=== PATIENT | female | born 1995 | race Caucasian/White ===

== ENCOUNTER 2016-10-27 12:50 | Emergency (ER) | payer SELFPAY ==
[2016-10-27 12:57] VITALS: BP 143/89
--- NOTE | 2016-10-27 14:17 | UC ---
Dental HPI - HPI Summary HPI Summary: 4 days of right lower dental pain and swelling---has not bad a dentist appointment, does not have dental insurance - History of Current Complaint Chief Complaint: UCDentalProblem Stated Complaint: DENTAL PAIN Time Seen by Provider: 10/27/16 14:10 Hx Obtained From: Patient Hx Last Menstrual Period: 06/2016 ?: No Onset/Duration: Gradual Onset, Lasting Days, Still Present, Worse Since - past 4 days Severity: Severe Pain Intensity: 8 Pain Scale Used: 0-10 Numeric Aggravating: Chewing Alleviating: Nothing Related History: Previous Dental Care on Same Tooth, Swelling - Allergies/Home Medications Allergies/Adverse Reactions: Allergies Allergy/AdvReac Type Severity Reaction Status Date / Time Bee Venom Allergy Severe Anaphylatic Verified 11/19/15 18:42 Shock Clarithromycin [From Biaxin] Allergy Severe Hives Verified 11/19/15 18:42 Eggs or Egg-derived Products Allergy Unknown Unknown Verified 11/19/15 18:42 Reaction Details Clindamycin Allergy Unknown Verified 11/19/15 18:42 Reaction Details Penicillins Allergy Unknown Verified 11/19/15 18:42 Reaction Details PEANUTS Allergy Severe Anaphylatic Uncoded 11/19/15 18:42 Shock PMH/Surg Hx/FS Hx/Imm Hx Previously Healthy: No Other History Of: Negative For: Anticoagulant Therapy - Surgical History Surgical History: None - Family History Known Family History: Positive: None, Diabetes - mother and grandparents - Social History Occupation: Unemployed Lives: With Family Alcohol Use: None Substance Use Type: None Smoking Status (MU): Heavy Every Day Tobacco Smoker Household Exposure Type: Cigarettes Cessation Counseling: Patient Advised to Stop Review of Systems Constitutional: Negative Skin: Negative Eyes: Negative ENT: Dental Pain - right lower dental pain last and third from the last molar Respiratory: Negative Cardiovascular: Negative Gastrointestinal: Negative Genitourinary: Negative Motor: Negative Neurovascular: Negative Musculoskeletal: Negative Neurological: Negative Psychological: Negative All Other Systems Reviewed And Are Negative: Yes Physical Exam Triage Information Reviewed: Yes Appearance: Ill-Appearing, Pain Distress, Obese Vital Signs: Initial Vital Signs Temp 96.3 F 10/27/16 12:54 Pulse 103 10/27/16 12:54 Resp 20 10/27/16 12:54 BP 143/89 10/27/16 12:54 Pulse Ox 100 10/27/16 12:54 Vital Signs Reviewed: Yes Eye Exam: Normal Eyes: Positive: Conjunctiva Clear ENT Exam: Normal ENT: Positive: Normal ENT inspection, Hearing grossly normal, Pharynx normal, TMs normal. Negative: Nasal congestion, Nasal drainage, Tonsillar swelling, Tonsillar exudate, Trismus, Muffled/hoarse voice Dental Exam: Other Dental: Positive: Percussion Tenderness @ - 30 and 32, Gross Decay/Caries @ - 30 and 32, Abscess @ - right lower jaw Neck exam: Normal Neck: Positive: Supple, Nontender, No Lymphadenopathy Respiratory Exam: Normal Respiratory: Positive: Chest non-tender, Lungs clear, Normal breath sounds, No respiratory distress, No accessory muscle use Cardiovascular Exam: Normal Cardiovascular: Positive: RRR, No Murmur, Pulses Normal, Brisk Capillary Refill Musculoskeletal Exam: Normal Musculoskeletal: Positive: Strength Intact, ROM Intact, No Edema Neurological Exam: Normal Neurological: Positive: Alert, Muscle Tone Normal Psychological Exam: Normal Skin Exam: Normal Dental Complaint Course/Dx - Course Course Of Treatment: Zithromax, ibuprofen, peridex, [facility] for help with insurance and dental voucher and dental referrals - Differential Dx/Diagnosis Differential Diagnosis/Dx: Dental Abscess, Dental Caries, Odontogenic Pain, Peridontic Disease Provider Diagnoses: dental abscess with dental caries, nicotine dependent Discharge - Discharge Plan Condition: Stable Disposition: HOME Prescriptions: Azithromycin TAB* [Zithromax TAB (Z-DAVINA) 250 mg #6 tabs] 2 tab PO .TODAY, THEN 1 DAILY #1 davina Chlorhexidine MW 0.12% 473ML* [Peridex Mouth Wash 0.12%*] 10 ml MT BID #473 ml Ibuprofen TAB* [Motrin TAB* 600 MG] 600 mg PO Q6H PRN #56 tab PRN Reason: Pain Patient Education Materials: Dental Abscess (ED), DASH Eating Plan (ED), Hypertension (ED) Referrals: [facility] [Provider Group] - 10/29/16 [facility] [place] [facility] [place] [place]] - 2 Weeks
== END 2016-10-27 14:36 | disposition home or self-care (01) ==
LOC: UCEAST 12:50
DX: K04.7 Periapical abscess without sinus (principal); K02.9 Dental caries, unspecified; F17.210 Nicotine dependence, cigarettes, uncomplicated; Z88.0 Allergy status to penicillin
CPT/HCPCS: 99212; G0463

== ENCOUNTER 2017-01-29 10:41 | Emergency (ER) | payer SELFPAY ==
[2017-01-29 10:49] VITALS: BP 124/85
--- NOTE | 2017-01-29 11:48 | RAD ---
HISTORY: Cough, fever, shortness of breath COMPARISONS: July 27, 2012 VIEWS: 4: Frontal dual-energy and lateral views of the chest. FINDINGS: CARDIOMEDIASTINAL SILHOUETTE: The cardiomediastinal silhouette is normal. ARA: The ara are normal. PLEURA: The costophrenic angles are sharp. No pleural abnormalities are noted. LUNG PARENCHYMA: The lungs are clear. ABDOMEN: The upper abdomen is clear. There is no subphrenic gas. BONES AND SOFT TISSUES: No bone or soft tissue abnormalities are noted. OTHER: None. IMPRESSION: NO ACTIVE CARDIOPULMONARY DISEASE.
--- NOTE | 2017-01-30 16:34 | UC ---
Progress - Progress Note Progress Note: notify pt that her preliminary UC is (+) for e.coli sensitivities pending will e Rx Keflex 500mg BID (#10)
--- NOTE | 2017-02-05 08:41 | UC ---
Juan Villaseñor Nilda, scribed for Julee Bowens MD on 01/29/17 at 1117 . Respiratory Complaint HPI - HPI Summary HPI Summary: This patient is a 21 year old F presenting [place] [facility] accompanied by mother with a chief complaint of constant moderate productive cough (bright green) that began 1 week ago. She reports rhinorrhea, nasal congestion, and vomiting. Symptoms are alleviated by nothing. Patient denies using inhalers. Per mother, patient has had recent sick contacts with siblings. PMHx includes childhood asthma and bronchitis. - History of Current Complaint Chief Complaint: UCRespiratory Stated Complaint: VOMITING FEVER CONGESTION Time Seen by Provider: 01/29/17 11:01 Hx Obtained From: Patient, Family/Parts Fabricator - mother Hx Last Menstrual Period: irregular did not have in dec Onset/Duration: Gradual Onset, Lasting Weeks - 1 week, Still Present Timing: Constant Severity Currently: Moderate Character: Cough: Productive, Sputum Description: - bright green Alleviating Factors: Nothing Associated Signs And Symptoms: Positive: Nasal Congestion - Allergies/Home Medications Allergies/Adverse Reactions: Allergies Allergy/AdvReac Type Severity Reaction Status Date / Time Bee Venom Allergy Severe Anaphylatic Verified 01/29/17 10:50 Shock Clarithromycin [From Biaxin] Allergy Severe Hives Verified 01/29/17 10:50 Eggs or Egg-derived Products Allergy Unknown Unknown Verified 01/29/17 10:50 Reaction Details Clindamycin Allergy Unknown Verified 01/29/17 10:50 Reaction Details Penicillins Allergy Unknown Verified 01/29/17 10:50 Reaction Details PEANUTS Allergy Severe Anaphylatic Uncoded 01/29/17 10:50 Shock PMH/Surg Hx/FS Hx/Imm Hx Previously Healthy: No - ricket dz, asthma Respiratory History: Asthma Other History Of: Negative For: Anticoagulant Therapy - Surgical History Surgical History: None - Family History Known Family History: Positive: Cardiac Disease - CHF, Diabetes - mother and grandparents, Respiratory Disease - COPD - Social History Alcohol Use: None Substance Use Type: None Smoking Status (MU): Heavy Every Day Tobacco Smoker Amount Used/How Often: 5 per day Household Exposure Type: Cigarettes Review of Systems Constitutional: Fatigue Skin: Negative Eyes: Negative ENT: Sore Throat - with cough, Nasal Discharge - bright green, Sinus Congestion Respiratory: Cough - productive, bright green no hemoptysis Cardiovascular: Chest Pain - with cough Gastrointestinal: Vomiting Genitourinary: Dysuria Motor: Negative Neurovascular: Negative Musculoskeletal: Negative Neurological: Negative Psychological: Negative Is Patient Immunocompromised?: No All Other Systems Reviewed And Are Negative: Yes Physical Exam Triage Information Reviewed: Yes Appearance: Well-Nourished Vital Signs: Initial Vital Signs Temp 98.3 F 01/29/17 10:45 Pulse 94 01/29/17 10:45 Resp 18 01/29/17 10:45 BP 124/85 01/29/17 10:45 Pulse Ox 98 01/29/17 10:45 Vital Signs Reviewed: Yes Eye Exam: Normal ENT: Positive: Pharyngeal erythema - post pharyngeal erythema, no sores, uvula mild edematous but airway patent, TMs normal - morris au Neck: Positive: Supple, Nontender, No Lymphadenopathy Respiratory: Positive: Chest non-tender, Rhonchi - bilat base, Wheezing - bilat Cardiovascular Exam: Normal - Heart rate regular, good general skin color, good capillary refill Cardiovascular: Positive: RRR, No Murmur, Pulses Normal, Brisk Capillary Refill Abdominal Exam: Normal Abdomen Description: Positive: Nontender, No Organomegaly, Soft Bowel Sounds: Positive: Present Musculoskeletal Exam: Other - s/p ricket dz. Moves all 4 ext's. Musculoskeletal: Positive: Strength Intact Neurological Exam: Normal - nonfocal, grossly intact Psychological Exam: Normal - conversing easily and appropriately Skin Exam: Normal - no visible or reported rash nondiaphoretic Diagnostic Evaluation - Laboratory O2 Sat by Pulse Oximetry: 98 - Radiology Radiology Interpretation Completed By: Radiologist - CXR reveals no active cardiopulmonary disease. physician reviewed this report and agrees. Re-Evaluation - Re-Evaluation First Eval Re-Evaluation Time: 11:52 Comment: Physician reviewed imaging results with patient. Respiratory Course/Dx - Course Course Of Treatment: No new problems in CCC. Considered DuoNeb treatment, but pt declines - will use albuterol neb at home (has access to home nebulizer). Urine dip noted, cx sent (pt agreed). Considered ucg, but pt reports that irreg periods are normal and not . Chest xray, per radiologist, reveals no active cardiopulmonary disease. physician reviewed this report and agrees. Questions as posed answered to the best of my ability. - Differential Dx/Diagnosis Provider Diagnoses: Acute bronchitis and wheezing Discharge - Discharge Plan Condition: Stable Disposition: HOME Prescriptions: Albuterol 2.5MG/3ML (0.083%)* [Ventolin 2.5 MG/3 ML NEB.TONI*] 2.5 mg INH Q6H PRN #1 box PRN Reason: Wheezing Albuterol HFA INHALER* [Ventolin HFA Inhaler*] 1 - 2 puff INH Q4H PRN #1 mdi PRN Reason: Wheezing Azithromyxin TONY (NF) [Z-Tony (Zithromax) 250 mg tabs #6] 2 tab PO .TODAY, THEN 1 DAILY #6 tab Nitrofurantoin Monohyd Macro [Macrobid] 100 mg PO BID #14 cap predniSONE TAB* [Deltasone TAB*] 40 mg PO DAILY #4 tab Patient Education Materials: Acute Bronchitis (ED), Wheezing (ED) [place] [facility] [place] [place] No Primary Care Phys,NOPCP [Primary Care Provider] - Additional Instructions: Blood pressure today 124/85 Follow up with a primary care physician as soon as you are able,within the next 4 weeks if possible. Blood pressure recheck at that time. Seek medical attention for worse or new problems in the meantime. The documentation as recorded by the Juan youssef Nilda accurately reflects the service I personally performed and the decisions made by me, Julee Bowens MD.
== END 2017-01-29 12:09 | disposition home or self-care (01) ==
LOC: UCEAST 10:41
DX: J20.9 Acute bronchitis, unspecified (principal); R09.81 Nasal congestion; R30.0 Dysuria; J45.909 Unspecified asthma, uncomplicated; Z88.0 Allergy status to penicillin; Z88.1 Allergy status to other antibiotic agents; Z91.030 Bee allergy status; F17.210 Nicotine dependence, cigarettes, uncomplicated
CPT/HCPCS: 71020; 81003; 87077; 87086; 87186; 99212; G0463

== ENCOUNTER 2017-05-28 15:21 | Emergency (ER) | payer SELFPAY ==
[2017-05-28 15:50] VITALS: BP 129/90
--- NOTE | 2017-05-28 16:11 | UC ---
Dental HPI - HPI Summary HPI Summary: Pt presents with right lower tooth pain that began 2-3 days ago. She tells me that she has a broken tooth in this area and thinks she developed an abscess. She has had an abscess here before and this feels the same. She currently does not have insurance and cannot afford a dentist. She is able to eat and drink, but with pain. Denies fever, chills, SOB, chest pain. - History of Current Complaint Chief Complaint: UCGeneralIllness Stated Complaint: TOOTH ACHE Time Seen by Provider: 05/28/17 16:07 Hx Obtained From: Patient Hx Last Menstrual Period: irregular Onset/Duration: Gradual Onset Severity: Severe Pain Intensity: 8 Pain Scale Used: 0-10 Numeric - Allergies/Home Medications Allergies/Adverse Reactions: Allergies Allergy/AdvReac Type Severity Reaction Status Date / Time MS Bee Venom [Bee Venom] Allergy Severe Anaphylatic Verified 01/29/17 10:50 Shock MS Clarithromycin Allergy Severe Hives Verified 01/29/17 10:50 [From Biaxin] MS Eggs or Egg-derived Allergy Unknown Unknown Verified 01/29/17 10:50 Products Reaction [Eggs or Egg-derived Details Products] MS Clindamycin [Clindamycin] Allergy Unknown Verified 01/29/17 10:50 Reaction Details MS Penicillins [Penicillins] Allergy Unknown Verified 01/29/17 10:50 Reaction Details PEANUTS Allergy Severe Anaphylatic Uncoded 01/29/17 10:50 Shock Home Medications: Home Medications Acetaminophen [Tylenol Extra Strength] 05/28/17 [History] PMH/Surg Hx/FS Hx/Imm Hx Previously Healthy: Yes Other History Of: Negative For: Anticoagulant Therapy - Surgical History Surgical History: None - Family History Known Family History: Positive: None, Cardiac Disease - CHF, Diabetes - mother and grandparents, Respiratory Disease - COPD - Social History Occupation: Unemployed Lives: With Family Alcohol Use: None Substance Use Type: None Smoking Status (MU): Heavy Every Day Tobacco Smoker Amount Used/How Often: 5 per day Household Exposure Type: Cigarettes Cessation Counseling: Counseled 3+Min - 10 Min Review of Systems Constitutional: Negative Skin: Negative ENT: Dental Pain Respiratory: Negative Cardiovascular: Negative Gastrointestinal: Negative Musculoskeletal: Negative Neurological: Negative Psychological: Negative All Other Systems Reviewed And Are Negative: Yes Physical Exam Triage Information Reviewed: Yes Appearance: Well-Appearing, No Pain Distress, Obese Vital Signs: Initial Vital Signs Temp 97.8 F 05/28/17 15:42 Pulse 96 05/28/17 15:42 Resp 16 05/28/17 15:42 BP 129/90 05/28/17 15:42 Pulse Ox 98 05/28/17 15:42 Vital Signs Reviewed: Yes Eyes: Positive: Conjunctiva Clear. Negative: Conjunctiva Inflamed, Discharge ENT: Positive: Hearing grossly normal, Pharynx normal, TMs normal, Dental tenderness - Tooth 20, Uvula midline. Negative: Pharyngeal erythema, TM bulging , TM dull, TM red, Tonsillar swelling, Tonsillar exudate, Muffled voice, Hoarse voice, Sinus tenderness Dental: Positive: Percussion Tenderness @ - Tooth 20, Gross Decay/Caries @ - Throughout, Dental Fracture @ - Tooth 20, Abscess @ - Tooth 20, Cellulitis @ - Tooth 20. Negative: Cervical Lymphadenopathy, Bleeding Neck: Positive: Supple, Nontender, No Lymphadenopathy Respiratory: Positive: Lungs clear, Normal breath sounds, No respiratory distress, No accessory muscle use Cardiovascular: Positive: RRR, No Murmur, Pulses Normal Neurological: Positive: Alert. Negative: Fatigued Psychological: Positive: Age Appropriate Behavior Skin: Negative: rashes Dental Complaint Course/Dx - Course Course Of Treatment: Dental abscess tooth 20 - Differential Dx/Diagnosis Provider Diagnoses: Dental abscess tooth 20 Discharge - Discharge Plan Condition: Stable Disposition: HOME Prescriptions: Azithromycin TAB* [Zithromax TAB (Z-DAVINA) 250 mg #6 tabs] 2 tab PO .TODAY, THEN 1 DAILY #1 davina Patient Education Materials: Dental Abscess (ED) Referrals: No Primary Care Phys,NOPCP [Primary Care Provider] - Additional Instructions: If you develop a fever, shortness of breath, chest pain, new or worsening symptoms - please call your PCP or go to the ED.
== END 2017-05-28 16:22 | disposition home or self-care (01) ==
LOC: UCEAST 15:21
DX: K04.7 Periapical abscess without sinus (principal); E66.9 Obesity, unspecified; Z88.0 Allergy status to penicillin; Z88.1 Allergy status to other antibiotic agents; Z91.030 Bee allergy status; Z91.012 Allergy to eggs; Z91.010 Allergy to peanuts; Z71.6 Tobacco abuse counseling; F17.210 Nicotine dependence, cigarettes, uncomplicated
CPT/HCPCS: 99211; G0463

== ENCOUNTER 2017-06-19 10:08 | Emergency (ER) | payer SELFPAY ==
[2017-06-19 10:51] VITALS: BP 133/82
--- NOTE | 2017-06-19 11:01 | UC ---
Respiratory Complaint HPI - HPI Summary HPI Summary: Pt presents with productive cough and chest congestion for the last 5 days. She tells me that her mother is sick with bronchitis-like symptoms. 5 days ago pt started with a dry cough and quickly became productive with green/yellow sputum. She has a hx of asthma and says that she has an albuterol inhaler and nebulizer at home, but has not been using them. Has felt feverish, but has not taken her temperature. Denies chills, sore throat, SOB, chest pain, abdominal pain, n/v/d/c. She is still smoking daily. - History of Current Complaint Hx Obtained From: Patient Hx Last Menstrual Period: does get them Onset/Duration: Gradual Onset Severity Initially: Moderate Severity Currently: Moderate Pain Intensity: 7 Pain Scale Used: 0-10 Numeric Character: Cough: Productive <Nasim Justin - Last Filed: 06/19/17 11:42> <Lynn Turcios - Last Filed: 06/21/17 18:53> - History of Current Complaint Chief Complaint: UCRespiratory Stated Complaint: CONGESTED Time Seen by Provider: 06/19/17 11:01 - Allergies/Home Medications Allergies/Adverse Reactions: Allergies Allergy/AdvReac Type Severity Reaction Status Date / Time bee venom protein (honey bee) Allergy Anaphylatic Verified 06/19/17 10:44 Shock clarithromycin [From Biaxin] Allergy Unknown Verified 06/19/17 10:44 Reaction Details clindamycin Allergy Unknown Verified 06/19/17 10:44 Reaction Details egg Allergy Unknown Verified 06/19/17 10:44 Reaction Details Penicillins Allergy Unknown Verified 06/19/17 10:44 Reaction Details PEANUTS Allergy Severe Anaphylatic Uncoded 01/29/17 10:50 Shock Home Medications: Home Medications Ibuprofen [Motrin Ib] 200 mg PO PRN 06/19/17 [History] PMH/Surg Hx/FS Hx/Imm Hx Respiratory History: Asthma Other History Of: Negative For: Anticoagulant Therapy - Surgical History Surgical History: None - Family History Known Family History: Positive: None, Cardiac Disease - CHF, Diabetes - mother and grandparents, Respiratory Disease - COPD - Social History Occupation: Unemployed Lives: With Family Alcohol Use: None Substance Use Type: None Smoking Status (MU): Light Every Day Tobacco Smoker Amount Used/How Often: 5 per day Household Exposure Type: Cigarettes <Eugene Justinothy - Last Filed: 06/19/17 11:42> Review of Systems Constitutional: Negative Skin: Negative Eyes: Negative ENT: Negative Respiratory: Cough Cardiovascular: Negative Gastrointestinal: Negative Neurological: Negative Psychological: Negative All Other Systems Reviewed And Are Negative: Yes <Eugene Justinothy - Last Filed: 06/19/17 11:42> Physical Exam - Summary Physical Exam Summary: GENERAL: NAD. WDWN. No pain distress. SKIN: No rashes, sores, ulcers, masses, lesions. No clubbing or cyanosis. HEENT: Head: AT/NC Eyes: Conjunctiva clear without inflammation or discharge. Ears: Hearing grossly normal. TMs intact, no bulging, erythema, or edema. Nose: Nasal mucosa pink and moist. NTTP maxillary and frontal sinus. Throat: Posterior oropharynx without exudates, erythema, or tonsillar enlargement. Uvula midline. NECK: Supple. Nontender. No lymphadenopathy. CHEST: Mild wheezing throughout. CTAB. No r/r. No accessory muscle use. Breathing comfortably and in no distress. CV: RRR. Without m/r/g. Pulses intact. Brisk cap refill. NEURO: Alert. CN II-XII grossly intact. PSYCH: Age appropriate behavior. Triage Information Reviewed: Yes Vital Signs: Initial Vital Signs Temp 97.5 F 06/19/17 10:46 Pulse 92 06/19/17 10:46 Resp 18 06/19/17 10:46 BP 133/82 06/19/17 10:46 Pulse Ox 99 06/19/17 10:46 <Nasim Justin - Last Filed: 06/19/17 11:42> Vital Signs: Initial Vital Signs Temp 97.5 F 06/19/17 10:46 Pulse 92 06/19/17 10:46 Resp 18 06/19/17 10:46 BP 133/82 06/19/17 10:46 Pulse Ox 99 06/19/17 10:46 <Lynn Turcios - Last Filed: 06/21/17 18:53> Diagnostic Evaluation - Laboratory O2 Sat by Pulse Oximetry: 99 <Nasim Justin - Last Filed: 06/19/17 11:42> Respiratory Course/Dx - Course Course Of Treatment: Suspect bronchitis, but given her hx of asthma - will cover her with an anbx. She tells me that she has taken a zpak many times in the past without issue. Advised to use her albuterol inhlaer and nebulizer as needed. - Differential Dx/Diagnosis Provider Diagnoses: Bronchitis. Asthma <Nasim Justin - Last Filed: 06/19/17 11:42> Discharge <Nasim Justin - Last Filed: 06/19/17 11:42> <Lynn Turcios - Last Filed: 06/21/17 18:53> - Discharge Plan Condition: Stable Disposition: HOME Prescriptions: Azithromycin TAB* [Zithromax TAB (Z-DAVINA) 250 mg #6 tabs] 2 tab PO .TODAY, THEN 1 DAILY #1 davina Patient Education Materials: Acute Bronchitis (ED) Referrals: No Primary Care Phys,NOPCP [Primary Care Provider] - Additional Instructions: If you develop a fever, shortness of breath, chest pain, new or worsening symptoms - please call your PCP or go to the ED. Your blood pressure was high at todays visit. Please see your primary provider within 4 weeks for recheck and re-evaluation. Attestation Statement User Type: Provider - I was available for consult. This patient was seen by the MARIA L. The patient was not presented to, seen by, or examined by me. Daphnie <Lynn Turcios - Last Filed: 06/21/17 18:53>
== END 2017-06-19 11:13 | disposition home or self-care (01) ==
LOC: UCEAST 10:08
DX: J45.909 Unspecified asthma, uncomplicated (principal); F17.210 Nicotine dependence, cigarettes, uncomplicated; Z88.0 Allergy status to penicillin; Z88.1 Allergy status to other antibiotic agents; Z91.030 Bee allergy status; Z91.012 Allergy to eggs; Z91.010 Allergy to peanuts
CPT/HCPCS: 99212; G0463

== ENCOUNTER 2017-11-26 10:15 | Emergency (ER) | payer SELFPAY ==
[2017-11-26 10:28] VITALS: BP 142/101
--- NOTE | 2017-11-26 11:21 | UC ---
UC General HPI - HPI Summary HPI Summary: 22 yo female c/o gum pain and swelling, progressively worse last few days. Since last night, noted swelling and pain mary kay upper frontal gum, extending to face. No fever / chills. Still trying to find a dentist. Notes several abx allergies. No breathing or swallowing difficulties. No cp / sob. No GI issues. + R ear discomfort. - History of Current Complaint Chief Complaint: UCDentalProblem Stated Complaint: SOFT TISSUE COMPLAINT Time Seen by Provider: 11/26/17 11:10 Hx Obtained From: Patient Hx Last Menstrual Period: doesnt get them ? why Pain Intensity: 9 - Allergy/Home Medications Allergies/Adverse Reactions: Allergies Allergy/AdvReac Type Severity Reaction Status Date / Time bee venom protein (honey bee) Allergy Anaphylatic Verified 06/19/17 10:44 Shock clarithromycin [From Biaxin] Allergy Unknown Verified 06/19/17 10:44 Reaction Details clindamycin Allergy Unknown Verified 06/19/17 10:44 Reaction Details egg Allergy Unknown Verified 06/19/17 10:44 Reaction Details Penicillins Allergy Unknown Verified 06/19/17 10:44 Reaction Details PEANUTS Allergy Severe Anaphylatic Uncoded 01/29/17 10:50 Shock PMH/Surg Hx/FS Hx/Imm Hx Previously Healthy: Yes - see hpi Other History Of: Negative For: Anticoagulant Therapy - Surgical History Surgical History: None - Family History Known Family History: Positive: None, Cardiac Disease - CHF, Diabetes - mother and grandparents, Respiratory Disease - COPD - Social History Alcohol Use: None Substance Use Type: None Smoking Status (MU): Light Every Day Tobacco Smoker Amount Used/How Often: 5 per day Household Exposure Type: Cigarettes Review of Systems Constitutional: Negative Skin: Other - see hpi Eyes: Negative ENT: Other - see hpi Respiratory: Negative Cardiovascular: Negative Gastrointestinal: Negative Genitourinary: Negative Motor: Negative Neurovascular: Negative Musculoskeletal: Negative Neurological: Negative Psychological: Negative Is Patient Immunocompromised?: No All Other Systems Reviewed And Are Negative: Yes Physical Exam Triage Information Reviewed: Yes Appearance: Well-Nourished - sitting up, conversing in full sentances Vital Signs: Initial Vital Signs Temp 98 F 11/26/17 10:25 Pulse 95 11/26/17 10:25 Resp 16 11/26/17 10:25 BP 142/101 11/26/17 10:25 Pulse Ox 98 11/26/17 10:25 Vital Signs Reviewed: Yes Eye Exam: Normal ENT Exam: Other - see dental ENT: Positive: Other - TM's benign AU. Dental Exam: Other - poor dentition with several previous restorations, many broken teeth. Gums receding in several areas. Upper mid teeth from approx #5 - 8: + gum swelling and redness, tender. Not fluctuant but tender. No stridor. Neck exam: Normal Neck: Positive: Supple, Nontender, No Lymphadenopathy Respiratory Exam: Normal Respiratory: Positive: Chest non-tender, Lungs clear, Normal breath sounds, No respiratory distress, No accessory muscle use Cardiovascular Exam: Normal Cardiovascular: Positive: RRR, No Murmur, Pulses Normal, Brisk Capillary Refill Abdominal Exam: Normal Abdomen Description: Positive: Nontender Musculoskeletal Exam: Normal - moves x 4 exts, gait steady Neurological Exam: Normal - grossly nonfocal Psychological Exam: Normal - conversing easily and appropriately Skin Exam: Normal - no visible or reported rash. R upper lip and maxilla with swelling. Nonfluctuant, noncrepitant. Course/Dx - Course Course Of Treatment: Reviewed coa / tx plan with pt. Declines prescription dental rinse, reports that she already had this rinse at home, but does not want to use it. Has been using salt rinse, but she will switch to 50/50 h2o2 and h2O, or mouthwash. Dental hygiene paramount. Reviewed abx with pt, she is interested in "Z-mingo," but concern d/t allergies listed, and coverage not optimal. But will rx doxycycline. Plans to f/u with a dentist, still working on getting an appt. Aware of the need to go to the ED for worse or new problems. - Differential Dx - Multi-Symptom Provider Diagnoses: Gingivostomatitis Discharge - Sign-Out/Discharge Documenting (check all that apply): Patient Departure - Discharge Plan Condition: Stable Disposition: HOME Prescriptions: DOXYcycline CAP(*) [DOXYcycline 100MG CAP(*)] 100 mg PO BID #28 cap Patient Education Materials: Doxycycline (By mouth), Gingivostomatitis (ED) Referrals: [facility] [Outside] No Primary Care Phys,NOPCP [Primary Care Provider] - Additional Instructions: Follow up with a primary care physician as soon as you are able. Please follow up with a Dentist as soon as possible, in the next week if possible. Please go to the Emergency Department for worse or new problems. - Billing Disposition and Condition Condition: STABLE Disposition: Home
== END 2017-11-26 11:55 | disposition home or self-care (01) ==
LOC: UCEAST 10:15
DX: K05.10 Chronic gingivitis, plaque induced (principal); Z88.0 Allergy status to penicillin; Z88.1 Allergy status to other antibiotic agents; Z91.030 Bee allergy status; Z91.012 Allergy to eggs; Z91.010 Allergy to peanuts; F17.210 Nicotine dependence, cigarettes, uncomplicated
CPT/HCPCS: 99212; G0463

== ENCOUNTER 2018-11-12 12:43 | Emergency (ER) | payer SELFPAY ==
[2018-11-12 13:47] VITALS: BP 124/87
--- NOTE | 2018-11-12 14:06 | UC ---
Lower Extremity/Ankle HPI - HPI Summary HPI Summary: 23-year-old female with history of rickets presents with complaints of left ankle pain. States she has noted some mild discomfort in the ankle for approximately one week however the she awoke this morning with much more severe pain to the point where she is unable to tolerate bearing weight. No known injury although she does report that she was hiking and also waiting in [place] yesterday. She has not taken any [id number] analgesics. Denies bruising , swelling, numbness, or tingling. - History of Current Complaint Chief Complaint: UCLowerExtremity Stated Complaint: ANKLE INJURY Time Seen by Provider: 11/12/18 13:54 Hx Obtained From: Patient Hx Last Menstrual Period: irreg. 10/08/18 Pain Intensity: 9 - Allergies/Home Medications Allergies/Adverse Reactions: Allergies Allergy/AdvReac Type Severity Reaction Status Date / Time bee venom protein (honey bee) Allergy Anaphylatic Verified 11/12/18 13:41 Shock clarithromycin [From Biaxin] Allergy Unknown Verified 11/12/18 13:41 Reaction Details clindamycin Allergy Unknown Verified 11/12/18 13:41 Reaction Details egg Allergy Unknown Verified 11/12/18 13:41 Reaction Details Penicillins Allergy Unknown Verified 11/12/18 13:41 Reaction Details PEANUTS Allergy Severe Anaphylatic Uncoded 11/12/18 13:41 Shock Home Medications: Home Medications NK [No Home Medications Reported] 11/12/18 [History Confirmed 11/12/18] PMH/Surg Hx/FS Hx/Imm Hx - Additional Past Medical History Additional PMH: rickets Other History Of: Negative For: Anticoagulant Therapy - Surgical History Surgical History: None - Family History Known Family History: Positive: Cardiac Disease - CHF, Diabetes - mother and grandparents, Respiratory Disease - COPD - Social History Occupation: Unemployed Lives: Alone Alcohol Use: Occasionally Substance Use Type: None Smoking Status (MU): Light Every Day Tobacco Smoker Amount Used/How Often: 1/2PPD Household Exposure Type: Cigarettes Review of Systems All Other Systems Reviewed And Are Negative: Yes Constitutional: Negative: Fever, Chills Skin: Negative: Rash, Bruising Respiratory: Positive: Negative Cardiovascular: Positive: Negative Gastrointestinal: Positive: Negative Genitourinary: Positive: Negative Motor: Negative: Weakness Neurovascular: Negative: Decreased Sensation Musculoskeletal: Positive: Other: - See HPI Neurological: Positive: Negative Is Patient Immunocompromised?: No Physical Exam - Summary Physical Exam Summary: GENERAL APPEARANCE: Well developed, well nourished, alert and cooperative, and appears to be in no acute distress. CARDIAC: Normal S1 and S2. No S3, S4 or murmurs. Rhythm is regular. There is no peripheral edema, cyanosis or pallor. Extremities are warm and well perfused. Capillary refill is less than 2 seconds. Peripheral pulses intact. LUNGS: Clear to auscultation without rales, rhonchi, wheezing or diminished breath sounds. ABDOMEN: Positive bowel sounds. Soft, nondistended, nontender. No guarding or rebound. No masses or hepatosplenomegally. MUSKULOSKELETAL: Normal muscular development. EXTREMITIES: Tenderness over the left lateral malleolus without erythema, ecchymosis, edema, or gross deformity. Full ROM with discomfort especially with inversion. Circulation and sensation intact. SKIN: Skin normal color, texture and turgor with no lesions or eruptions. Triage Information Reviewed: Yes Vital Signs: Initial Vital Signs Temp 98.7 F 11/12/18 13:42 Pulse 82 11/12/18 13:42 Resp 16 11/12/18 13:42 BP 124/87 11/12/18 13:42 Pulse Ox 98 11/12/18 13:42 Vital Signs Reviewed: Yes Diagnostics - Radiology No standard instances Radiology Interpretation Completed By: Radiologist Summary of Radiographic Findings: Order Information: ANKLE LEFT 3+VWS. Accession Number: [id number]. CPT: 24694. INDICATION: Nontraumatic lateral ankle pain. TECHNIQUE: 3 views of the left ankle were obtained. FINDINGS: The bones are normal alignment. No fracture is seen. There appears to be moderate osteoarthritic change in the talocrural, talonavicular and navicular cuneiform joints. The subtalar joint is not well possibly due to positioning or partial fusion with a calcaneus. IMPRESSION: 1. MODERATE OSTEOARTHRITIC CHANGE. 2. POSSIBLE TARSAL COALITION THIS COULD BE FURTHER EVALUATED AN OUTPATIENT WITH CT IMAGING. Lower Extremity Course/Dx - Course Course Of Treatment: 23-year-old female with history of rickets presents with complaints of left ankle pain. States she has noted some mild discomfort in the ankle for approximately one week however the she awoke this morning with much more severe pain to the point where she is unable to tolerate bearing weight. No known injury although she does report that she was hiking and also waiting in a [place] yesterday. She has not taken any [facility]-int-[facility] analgesics. Denies bruising , swelling, numbness, or tingling. Afebrile. Vital signs stable. Patient had tenderness over the left lateral malleolus without erythema, ecchymosis, edema, or gross deformity. Full ROM with discomfort especially with inversion. Circulation and sensation intact. Remainder of exam was unremarkable. X-ray showed no acute fracture although it did reveal moderate osteoarthritic change in the talocrural, talonavicular and navicular cuneiform joints which is likely the cause of her pain. Recommending conservative treatment for left ankle arthritis. She was provided crutches to maintain nonweightbearing until she could be further evaluated by orthopedic surgery within the next 5-7 days. Recommending [id number] analgesics and RICE. Anticipatory guidance and warning symptoms were reviewed with the patient. Verbalizes understanding and agrees with plan of care. - Differential Dx/Diagnosis Differential Diagnosis/HQI/PQRI: Arthritis, Contusion, Fracture (Closed), Infection Provider Diagnosis: Arthritis of left ankle Discharge - Sign-Out/Discharge Documenting (check all that apply): Patient Departure All imaging exams completed and their final reports reviewed: Yes - Discharge Plan Condition: Stable Disposition: HOME Patient Education Materials: Arthralgia (ED) Referrals: No Primary Care Phys,NOPCP [Primary Care Provider] - Frandy Harrell MD [Medical Doctor] - Additional Instructions: The x-ray performed in the clinic today showed no evidence of a fracture. You do have evidence of arthritic changes in the ankle that should be further evaluated. Rest the ankle as much as possible. Use the crutches provided to you to remain non-weight bearing until see by orthopedic surgery. Apply ice to the affected area for 15-20 minutes at least 4 times a day to help with the pain and swelling. Elevate the leg to help reduce swelling. Take acetaminophen (Tylenol) or ibuprofen (Advil, Motrin) according to directions as needed for pain. Follow up with orthopedic surgery in 5-7 days for further evaluation. Seek immediate medical attention if you have severe pain not managed with pain medication, develop numbness or tingling in the foot or toes, or have any worsening of symptoms. - Billing Disposition and Condition Condition: STABLE Disposition: Home
== END 2018-11-12 15:22 | disposition home or self-care (01) ==
LOC: UCEAST 12:43
DX: M19.072 Primary osteoarthritis, left ankle and foot (principal); E55.0 Rickets, active; F17.210 Nicotine dependence, cigarettes, uncomplicated; Z88.0 Allergy status to penicillin
CPT/HCPCS: 99202; G0463

== ENCOUNTER 2019-07-07 11:05 | Emergency (ER) | payer SELFPAY ==
--- NOTE | 2019-07-07 12:22 | UC ---
Throat Pain/Nasal Clement HPI - HPI Summary HPI Summary: 23 yo female presents with sinus symptoms. She tells me that over the last 3-4 days she has had worsening sinus pain/pressure/congestion. She has been taking ibuprofen OTC with little relief. Denies fever, chills, sore throat, cough. - History of Current Complaint Stated Complaint: SINUS CONGESTION Time Seen by Provider: 07/07/19 12:22 Hx Obtained From: Patient Hx Last Menstrual Period: irreg. 10/08/18 Onset/Duration: Gradual Onset Severity: Moderate Pain Intensity: 5 Pain Scale Used: 0-10 Numeric - Allergies/Home Medications Allergies/Adverse Reactions: Allergies Allergy/AdvReac Type Severity Reaction Status Date / Time bee venom protein (honey bee) Allergy Anaphylatic Verified 07/07/19 12:30 Shock clarithromycin [From Biaxin] Allergy Unknown Verified 07/07/19 12:30 Reaction Details clindamycin Allergy Unknown Verified 07/07/19 12:30 Reaction Details egg Allergy Unknown Verified 07/07/19 12:30 Reaction Details Penicillins Allergy Unknown Verified 07/07/19 12:30 Reaction Details PEANUTS Allergy Severe Anaphylatic Uncoded 07/07/19 12:30 Shock Home Medications: Home Medications Azithromycin TAB* [Zithromax TAB (Z-DAVINA) 250 mg #6 tabs] 2 tab PO .TODAY, THEN 1 DAILY #1 davina 07/07/19 [Rx] PMH/Surg Hx/FS Hx/Imm Hx - Additional Past Medical History Additional PMH: None Other History Of: Negative For: Anticoagulant Therapy - Surgical History Surgical History: None - Family History Known Family History: Positive: Cardiac Disease - CHF, Diabetes - mother and grandparents, Respiratory Disease - COPD - Social History Lives: With Family Alcohol Use: Occasionally Substance Use Type: None Smoking Status (MU): Light Every Day Tobacco Smoker Amount Used/How Often: 1/2PPD Household Exposure Type: Cigarettes Review of Systems All Other Systems Reviewed And Are Negative: No Constitutional: Positive: Negative Skin: Positive: Negative Eyes: Positive: Negative ENT: Positive: Nasal Discharge, Sinus Congestion, Sinus Pain/Tenderness Respiratory: Positive: Negative Cardiovascular: Positive: Negative Gastrointestinal: Positive: Negative Neurological/Mental Status: Positive: Negative Psychological: Positive: Negative Physical Exam - Summary Physical Exam Summary: GENERAL: NAD. WDWN. No pain distress. SKIN: No rashes, sores, lesions, or open wounds. HEENT: Head: AT/NC Eyes: EOM intact. Conjunctiva clear without inflammation or discharge. Ears: Hearing grossly normal. TMs intact, no bulging, erythema, or edema. Nose: Nasal mucosa mildly swollen and erythematous with yellow/ clear discharge. TTP maxillary and frontal sinus. Positive post nasal drip Throat: Posterior oropharynx without exudates, erythema, or tonsillar enlargement. Uvula midline. NECK: Supple. Nontender. No lymphadenopathy. CHEST: CTAB. No r/r/w. No accessory muscle use. Breathing comfortably and in no distress. CV: RRR. Pulses intact. NEURO: Alert. PSYCH: Age appropriate behavior. Triage Information Reviewed: Yes Vital Signs: Vital Signs: Temp Pulse Resp BP Pulse Ox 97.4 F 89 20 159/78 98 07/07/19 12:21 07/07/19 12:21 07/07/19 12:21 07/07/19 12:21 07/07/19 12:21 Vital Signs Reviewed: Yes Throat Pain/Nasal Course/Dx - Course Course Of Treatment: Sinusitis - Differential Dx/Diagnosis Provider Diagnosis: Sinusitis Discharge ED - Sign-Out/Discharge Documenting (check all that apply): Patient Departure All imaging exams completed and their final reports reviewed: No Studies - Discharge Plan Condition: Stable Disposition: HOME Prescriptions: Azithromycin TAB* [Zithromax TAB (Z-DAVINA) 250 mg #6 tabs] 2 tab PO .TODAY, THEN 1 DAILY #1 davina Patient Education Materials: Sinusitis (ED) Referrals: No Primary Care Phys,NOPCP [Primary Care Provider] - Additional Instructions: If you develop a fever, shortness of breath, chest pain, new or worsening symptoms - please call your PCP or go to the ED immediately. Your blood pressure was high at todays visit. Please see your primary provider within 4 weeks for recheck and re-evaluation. - Billing Disposition and Condition Condition: STABLE Disposition: Home - Attestation Statements Provider Attestation: This patient was not seen by me. I was available for consult. Chart reviewed. MARV
[2019-07-07 12:33] VITALS: BP 159/78
== END 2019-07-07 12:42 | disposition home or self-care (01) ==
LOC: UCEAST 11:05
DX: J32.9 Chronic sinusitis, unspecified (principal); Z91.030 Bee allergy status; Z88.1 Allergy status to other antibiotic agents; Z91.012 Allergy to eggs; Z88.0 Allergy status to penicillin; Z91.011 Allergy to milk products; F17.210 Nicotine dependence, cigarettes, uncomplicated
CPT/HCPCS: 99212; G0463